=== PATIENT | male | born 1975 | race Caucasian/White ===

== ENCOUNTER 2020-10-05 07:55 | Day surgery (SDC) | payer OTHER ==
[~2020-10-05] VITALS: Ht 175.3 cm; Wt 90.3 kg
--- NOTE | ~2020-10-05 | OR ---
[facility] [address], [place] [address] Draft DATE OF OPERATION: 10/05/2020 SURGEON: Javier Wynn MD PREOPERATIVE DIAGNOSIS: Incisional hernia, mid abdomen, umbilical area. POSTOPERATIVE DIAGNOSIS: Incisional hernia, mid abdomen, umbilical area with meshoma. PROCEDURE: Repair incisional hernia with explantation of Prolene mesh and implantation of Prolene mesh in an underlay technique. ANESTHESIA: General endotracheal; Artur Sunny, EDUCATION INSTRUCTOR, and local 20 mL of 0.25% Marcaine with epinephrine. INDICATION: This 45-year-old white man underwent umbilical hernia repair with implantation of mesh greater than 10 years ago in [place], [place]. He has had progressive increase in the small mass in the area. Clinical examination by Dr. Archer, his primary provider, shows findings of hernia. His previous incision was superior to the umbilicus and transversely oriented. He is said to have had implantation of mesh, but I do not have record for that. Underlying issues include hypertension and sleep apnea, for which he uses a CPAP device. He is admitted at this time to undergo repair of the incisional hernia, likely to include explantation of previous mesh and implantation of Prolene mesh in an underlay technique. He understands the risks of bleeding, infection, recurrence, need for other indicated procedures, and other unforeseen complications related to the repair and wished to proceed. FINDINGS: A vertically oriented incision was used. Dissection showed chronic scarring of omentum to a defect in the fascia and several Prolene type sutures in the area. There was indeed a meshoma (rolled up mesh) to the right and superior to the defect proper. Additionally noted was a separate 1.5 cm defect cephalad to the previous repair, which had herniated omentum. A portion of omentum was excised for that and the defect made in continuity with each other. Ultimately, Prolene mesh was secured in an underlay technique with a 4 cm overlap from PATIENT NAME: JUDD SCHAEFFER OPERATIVE REPORT DATE OF : 75 REPORT #: [id number] PHYSICIAN: JAVIER WYNN MD PCP: VON ARCHER MD REPORT IS CONFIDENTIAL AND NOT TO BE RELEASED WITHOUT AUTHORIZATION [facility] [address], [place] [address] Draft the fascial defect edges and reapproximation of the midline fascia additionally with Prolene suture and Prolene pledgets. DESCRIPTION OF PROCEDURE: The patient was brought to the operating room and given a general endotracheal anesthetic. Preoperative antibiotic Ancef was given. Sequential compression device stockings were used and heparin subcutaneously administered. The abdomen was clipped and prepared with chlorhexidine solution and draped sterilely. Manipulation of the region of the umbilicus demonstrated a transverse incision cephalad to the umbilicus. Nonreducible soft tissue was noted in the region. An incision was made cephalad and inferior to the umbilicus skirting around the umbilicus itself to the right. Dissection was carried through the dermis sharply and using blunt and electrocautery dissection, subcutaneous tissue was freed from the underlying hernia. Several Prolene sutures were noted in the area. These were removed as well. The fascial defect was more fully defined and found to have chronic scarring and herniated properitoneal fat and ultimately omentum. This was freed circumferentially in the properitoneal space. A defect was noted cephalad to the initial defect, which was about 1.5 cm with herniated omentum. This was ultimately amputated. The fascial defect was separate and distinct from this hernia and the bridge between the two was incised with electrocautery generating 1 defect in aggregate. The properitoneal space was then developed with blunt and electrocautery dissection circumferentially for at least 4 cm. A small defect in the peritoneum was secured with 2-0 Vicryl. Internal inspection showed normal bowel loops and no sign of ascites or carcinomatosis. A 6 inch x 6 inch segment of Prolene mesh was cut to an elliptical configuration and secured in an underlay technique with interrupted 0 Prolene sutures with Prolene pledgets to secure them circumferentially. A midline fascia was reapproximated with interrupted 0 Prolene with Prolene pledgets closing the fascia over the mesh entirely. Irrigation was undertaken and 20 mL of 0.25% Marcaine with epinephrine was injected locally. The Silverio's layer was reapproximated with interrupted 2-0 Vicryl and the skin was closed with running subcuticular 3-0 Vicryl. Steri-Strips were applied as was silver sponge dressing. He tolerated the procedure well. BLOOD LOSS: Minimal. COMPLICATIONS: None. PATIENT NAME: JUDD SCHAEFFER OPERATIVE REPORT DATE OF : 75 REPORT #: [id number] PHYSICIAN: JAVIER WYNN MD PCP: VON ARCHER MD REPORT IS CONFIDENTIAL AND NOT TO BE RELEASED WITHOUT AUTHORIZATION [address] [address] Draft Javier Wynn MD JM/MODL /[id number] cc: Von Archer MD Copies: ~ PATIENT NAME: JUDD SCHAEFFER OPERATIVE REPORT DATE OF : 75 REPORT #: [id number] PHYSICIAN: JAVIER WYNN MD PCP: VON ARCHER MD REPORT IS CONFIDENTIAL AND NOT TO BE RELEASED WITHOUT AUTHORIZATION
[2020-10-05] MEDS ORDERED: MULTI VITAMIN1 EACH PO (08:09)
[2020-10-05] MEDS ORDERED: TURMERIC 500 M1 EACH PO (08:09)
[2020-10-05] MEDS ORDERED: CLARITIN10 M2 PO (08:10)
[2020-10-05] MEDS ORDERED: KRILL OIL 1,001 EAC1 PO (08:10)
[2020-10-05] MEDS ORDERED: VITAMIN E100 UNIT PO ×2 (08:11)
[2020-10-05] MEDS ORDERED: IBUPROFEN IB200 MG PO (08:12)
[2020-10-05] MEDS ORDERED: VITAMIN D3125 MC2 PO (08:12)
[2020-10-05] MEDS ORDERED: IBUPROFEN600 MG PO (11:57)
[2020-10-05] MEDS ORDERED: OXYCODON-ACETA1 EAC2 PO (11:58)
[2020-10-05] MEDS ORDERED: ACETAMINOPHEN500 MG PO (11:58)
== END 2020-10-05 13:50 | disposition home or self-care (01) ==
LOC: DS 07:55
PROVIDERS: ATTEND Surgery
PROC: 0WUF0JZ Supplement Abdominal Wall with Synthetic Substitute, Open Approach (ICD-10-PCS; principal; 2020-10-05 08:30)
DX: K43.2 Incisional hernia without obstruction or gangrene (principal); T85.890A Other specified complication of nervous system prosthetic devices, implants and grafts, initial encounter; I10 Essential (primary) hypertension; K21.9 Gastro-esophageal reflux disease without esophagitis; G47.33 Obstructive sleep apnea (adult) (pediatric); E66.3 Overweight; Y83.8 Other surgical procedures as the cause of abnormal reaction of the patient, or of later complication, without mention of misadventure at the time of the procedure; Z68.29 Body mass index [BMI] 29.0-29.9, adult; Z79.899 Other long term (current) drug therapy
CPT/HCPCS: 00750; C1781; J0690; J1100; J1644; J1885; J2001; J2405; J2704; J3010; J7121

== ENCOUNTER 2022-02-14 05:55 | Day surgery (SDC) | payer OTHER ==
[~2022-02-14] VITALS: Ht 175.3 cm; Wt 93.2 kg
[~2022-02-14 05:55] MED LIST: ACETAMINOPHEN500 MG PO; CLARITIN10 M2 PO; GARLIC OIL1000 MG PO; IBUPROFEN IB200 MG PO; IBUPROFEN600 MG PO; KRILL OIL 1,001 EAC1 PO; MELATIN3 MG PO; MULTI VITAMIN1 EACH PO; OXYCODON-ACETA1 EAC2 PO; TURMERIC 500 M1 EACH PO; VITAMIN D3125 MC2 PO; VITAMIN E100 UNIT PO; ZANAFLEX2 M1 PO
[2022-02-14] MEDS ORDERED: PROBIOTIC1 EAC2 PO ×2 (07:21→07:23)
[2022-02-14] MEDS ORDERED: GLUCOSAMINE1000 MG PO (07:22)
--- NOTE | 2022-02-14 08:41 | NUR ---
PT ALERT, ORIENTED AND SUPPORTED BY HIS MONIKA. PT HAS DEALT WITH THIS BEFORE, GAVE COMFORT ALL QUESTIONS ASKED ANSWERED. MONIKA WILL RETURN UPON DC. PT REQUESTED PRAYER, WILL FOLLOW
--- NOTE | 2022-02-14 09:33 | NUR ---
02/14/22 0933 Geeta Jama 0921-PT TO PACU IN SUPINE POSITION. EYES CLOSED DOES NOT RESPOND TO VERBAL OR TACTILE STIMULI. BREATHING EASY AND UNLABORED. WITH ORAL AIRWAY IN PLACE. JAW THRUST REQUIRED TO PROMOTE OPTIMAL VENTILLATION. SPO2 >95% ON 10 L O2 VIA SIMPLE MASK. 1924- PT REACTIVE TO VERBAL AND TACTILE STIMULI. DOES NOT OPEN EYES OR FOLLOW COMMANDS. ORAL AIRWAY IN PLACE. BREATHING EASY AND UNLABORED. SPO2 >95% ON 10 L O2 VIA SIMPLE MASK. 1927- PT OPENS EYES AND FOLLOWS COMMANDS. ORAL AIRWAY REMOVED. PT ENCOURAGED TO TAKE DEEP BREATHS. RETURN DEMONSTRATION OBSERVED. SPO2 >95%. O2 TITRATED DOWN TO ROOM AIR. 1931- PT REQUESTING TO TAKE OFF O2 MASK. BREATHING EASY AND UNLABORED. SPO2 >95%. O2 TITRATED DOWN TO ROOM AIR. ABDOMINAL PILLOW PLACED OVER SURGICAL SITE. PT EDUCATED TO USE ABDOMINAL SPLINTING NEEDED.
[2022-02-14] MEDS ORDERED: IBUPROFEN600 MG PO (09:40)
[2022-02-14] MEDS ORDERED: ACETAMINOPHEN500 MG PO (09:41)
[2022-02-14] MEDS ORDERED: OXYCODON-ACETA1 EAC2 PO (09:41)
--- NOTE | 2022-02-14 09:50 | NUR ---
PT ARRIVED TO DS AND VSS. PT RESING IN BED AND REPORTS 5/10 PAIN. JAVIER JIMENEZ UPDATED AND VERBAL ORDER RECEIVED FOR USE OF PACU MEDICATION IN PHASE 2.
--- NOTE | 2022-02-14 10:00 | NUR ---
PAIN MEDICATION GIVEN, PT GRMACING AND PLAN OF CARE DISCUSSED. PT EATING JELLO AND CRACKERS AND DRINKING WATER. PT DENIES NAUSEA.
--- NOTE | 2022-02-14 10:19 | NUR ---
PT REPORTS IS PAIN IS GETTING BETTER, 4/10. AT BEDSIDE. PULSE OX IN PLACE.
--- NOTE | 2022-02-14 11:05 | NUR ---
PT REPORTS "NO PAIN IF A DONT MOVE." 12/27. PT RESTING IN BED VSS.
--- NOTE | 2022-02-14 11:59 | NUR ---
PT RESING IN BED AND DC INSTRUCTIONS GIVEN. PT EATING PUDDING. ABD DRESSING LOW 1/3 OF DRESSING SATURATED AND SMALL AMOUNT OF POOLING OR RED DRAINAGE NOTED. PLAN OF CARE DISCUSSED AND RN GOING TO UPDATE MD. PT DRESSED HIMSELF WITH AT BEDSIDE. VSS.
--- NOTE | 2022-02-14 12:15 | NUR ---
NORMA CANE PACKER AT BEDSIDE AND DRESSING ASSESSED. DRESSING REINFORCED WITH OPSITE. PT DC WITH AND EDUCATION GIVEN ABOUT DRESSING. PT AND VERBALIZED UNDERSTANDING. PAPERWORK AND RX GIVEN. PT DC VIA WC.
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
== END 2022-02-14 12:15 | disposition home or self-care (01) ==
LOC: DS 05:55
PROVIDERS: ATTEND Surgery
PROC: 0WUF0JZ Supplement Abdominal Wall with Synthetic Substitute, Open Approach (ICD-10-PCS; principal; 2022-02-14 07:30)
DX: K43.2 Incisional hernia without obstruction or gangrene (principal); K45.8 Other specified abdominal hernia without obstruction or gangrene; G47.30 Sleep apnea, unspecified; Z87.81 Personal history of (healed) traumatic fracture
CPT/HCPCS: C1781; J0330; J0690; J1100; J1644; J1885; J2250; J2405; J2704; J2765; J3010; J7121

== ENCOUNTER 2022-02-14 20:19 | Emergency (ER) | payer OTHER ==
[~2022-02-14] VITALS: Ht 175.3 cm; Wt 93.0 kg
[~2022-02-14 20:19] MED LIST changes: +GLUCOSAMINE1000 MG PO; +PROBIOTIC1 EAC2 PO
== END 2022-02-14 23:53 | disposition home or self-care (01) ==
LOC: ED 20:19
DX: K91.841 Postprocedural hemorrhage of a digestive system organ or structure following other procedure (principal); Z79.899 Other long term (current) drug therapy
CPT/HCPCS: 99283

== ENCOUNTER 2022-05-17 08:46 | Day surgery (SDC) | payer OTHER ==
[~2022-05-17] VITALS: Ht 172.7 cm; Wt 99.8 kg
--- NOTE | 2022-05-17 11:02 | NUR ---
05/17/22 1102 Leana Merchant PT TO PACU AWAKE AND ALERT DENIES PAIN OR NAUSEA,
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
== END 2022-05-17 11:30 | disposition home or self-care (01) ==
LOC: OPS 08:46 → DS 08:50 → OPS 11:15 → DS 11:15 → OPS 11:30
PROVIDERS: ATTEND Surgery
PROC: 0DJD8ZZ Inspection of Lower Intestinal Tract, Via Natural or Artificial Opening Endoscopic (ICD-10-PCS; principal; 2022-05-17 11:15)
DX: Z12.11 Encounter for screening for malignant neoplasm of colon (principal); Z83.71 Family history of colonic polyps; K64.4 Residual hemorrhoidal skin tags; K43.2 Incisional hernia without obstruction or gangrene; S32.009D Unspecified fracture of unspecified lumbar vertebra, subsequent encounter for fracture with routine healing; G47.30 Sleep apnea, unspecified; Z98.890 Other specified postprocedural states
CPT/HCPCS: 99153; G0500; J2250; J3010; J7121